=== PATIENT | male | born 1960 | race Caucasian/White ===

== ENCOUNTER 2018-04-17 01:15 | Emergency (ER) | payer MEDICAID ==
[~2018-04-17] VITALS: Ht 175.3 cm; Wt 136.0 kg
[~2018-04-17 01:15] MED LIST: CLIN150C8 PO; CYCL-1 PO; NO HOME MEDS
[2018-04-17 03:09] LABS: BASOPHILS % (AUTO) 0.6 % (0-1); EOSINOPHILS # (AUTO) 0.3 X10'3 (0-0.9); HEMATOCRIT 41.2 % (42.0-52.0); LYMPHOCYTES # (AUTO) 1.7 X10'3 (1.1-4.8); LYMPHOCYTES % (AUTO) 31.9 % (21-51); MEAN CORPUSCULAR HEMOGLOBIN 30.2 PG (27.0-31.0); MEAN CORPUSCULAR VOLUME 89.1 FL (78-98); MONOCYTES # (AUTO) 0.5 X10'3 (0-0.9); NEUTROPHILS # (AUTO) 2.7 X10'3 (1.8-7.7); NEUTROPHILS % (AUTO) 52.5 % (42-75); PLATELET COUNT 233 X10'3 (140-440); RED BLOOD COUNT 4.62 X10'6 (4.70-6.10); RED CELL DISTRIBUTION WIDTH 13.2 % (11.5-14.5); WHITE BLOOD COUNT 5.2 X10'3 (4.5-11.0)
[2018-04-17 03:22] LABS: ALANINE AMINOTRANSFERASE 30 U/L (12-78); ALBUMIN 3.5 G/DL (3.4-5.0); ALBUMIN/GLOBULIN RATIO 1.1 (1.1-1.5); ALKALINE PHOSPHATASE 65 IU/L (46-116); ANION GAP 10 (8-16); ASPARTATE AMINO TRANSFERASE 29 U/L (10-37); BILIRUBIN,TOTAL 0.3 MG/DL (0.1-1.0); BLOOD UREA NITROGEN 23 MG/DL (7-18); BUN/CREATININE RATIO 19.8 (5.4-32.0); CHLORIDE 104 MMOL/L (99-107); CREATININE 1.16 MG/DL (0.60-1.10); GLUCOSE 138 MG/DL (70-104); POTASSIUM 4.1 MMOL/L (3.5-5.1); SODIUM 139 MMOL/L (135-145); TOTAL CARBON DIOXIDE 25.3 MMOL/L (24-32); TOTAL PROTEIN 6.8 G/DL (6.4-8.2); eGFR 65 ML/MIN
[2018-04-17 04:38] VITALS: BP 152/84
== END 2018-04-17 08:33 | disposition left against medical advice (07) ==
LOC: ER 01:15
DX: R06.00 Dyspnea, unspecified (principal); Z53.21 Procedure and treatment not carried out due to patient leaving prior to being seen by health care provider
CPT/HCPCS: 36415; 71046; 80053; 83605; 85025; 87040; 93005

== ENCOUNTER 2018-05-20 00:36 | Emergency (ER) | payer MEDICAID ==
[~2018-05-20] VITALS: Ht 175.3 cm; Wt 127.2 kg
[2018-05-20 01:06] LABS: EOSINOPHILS # (AUTO) 0.2 X10'3 (0-0.9); EOSINOPHILS % (AUTO) 4.9 % (0-6); HEMATOCRIT 36.2 % (42.0-52.0); HEMOGLOBIN 12.4 g/dl (14.0-17.9); LYMPHOCYTES # (AUTO) 1.9 X10'3 (1.1-4.8); LYMPHOCYTES % (AUTO) 39.9 % (21-51); MEAN CORPUSCULAR HEMOGLOBIN 30.1 PG (27.0-31.0); MEAN CORPUSCULAR HGB CONC 34.2 g/dL (33.0-36.5); MEAN CORPUSCULAR VOLUME 88.1 FL (78-98); MEAN PLATELET VOLUME 8.1 FL (7.4-10.4); MONOCYTES # (AUTO) 0.5 X10'3 (0-0.9); MONOCYTES % (AUTO) 11.4 % (2-12); NEUTROPHILS % (AUTO) 42.8 % (42-75); PLATELET COUNT 195 X10'3 (140-440); RED BLOOD COUNT 4.11 X10'6 (4.70-6.10); RED CELL DISTRIBUTION WIDTH 13.3 % (11.5-14.5); WHITE BLOOD COUNT 4.7 X10'3 (4.5-11.0)
[2018-05-20 01:15] LABS: ALANINE AMINOTRANSFERASE 35 U/L (12-78); ALBUMIN 3.4 G/DL (3.4-5.0); ALBUMIN/GLOBULIN RATIO 1.1 (1.1-1.5); ALKALINE PHOSPHATASE 61 IU/L (46-116); ANION GAP 8 (8-16); ASPARTATE AMINO TRANSFERASE 41 U/L (10-37); BILIRUBIN,TOTAL 0.2 MG/DL (0.1-1.0); BLOOD UREA NITROGEN 23 MG/DL (7-18); BUN/CREATININE RATIO 16.7 (5.4-32.0); CALCIUM 9.7 MG/DL (8.5-10.1); CHLORIDE 107 MMOL/L (99-107); CREATININE 1.38 MG/DL (0.60-1.10); GLUCOSE 147 MG/DL (70-104); POTASSIUM 3.8 MMOL/L (3.5-5.1); SODIUM 142 MMOL/L (135-145); TOTAL CARBON DIOXIDE 26.7 MMOL/L (24-32); TOTAL PROTEIN 6.4 G/DL (6.4-8.2); eGFR 53 ML/MIN
[2018-05-20] MEDS ORDERED: carVEDilol 12.5mg tablet PO SCH (02:55)
[2018-05-20] MEDS ORDERED: albuterol 2.5 MG/3 ML nebule NEB ONE (02:55)
[2018-05-20] MEDS ORDERED: CARV3.12 PO (03:04)
[2018-05-20] MEDS ORDERED: ALBU6.7H INH (03:19)
[2018-05-20] MEDS ORDERED: dexamethasone 4mg tablet PO ONE (03:20)
[2018-05-20 03:40] VITALS: BP 161/91
== END 2018-05-20 03:44 | disposition home or self-care (01) ==
LOC: ER 00:36
DX: I11.0 Hypertensive heart disease with heart failure (principal); I50.9 Heart failure, unspecified; J45.909 Unspecified asthma, uncomplicated; M19.90 Unspecified osteoarthritis, unspecified site; Z98.890 Other specified postprocedural states; Z79.899 Other long term (current) drug therapy
CPT/HCPCS: 36415; 71046; 80053; 83735; 83880; 85025; 93005; 94640; 94760; 99284; J8540

== ENCOUNTER 2018-05-21 16:02 | Inpatient (IN) | payer MEDICAID ==
[~2018-05-21] VITALS: Ht 175.3 cm; Wt 129.6 kg
[~2018-05-21 16:02] MED LIST changes: +ALBU6.7H INH; +CARV3.12 PO
[2018-05-21 16:35] LABS: BASOPHILS % (AUTO) 0.5 % (0-1); EOSINOPHILS # (AUTO) 0.1 X10'3 (0-0.9); EOSINOPHILS % (AUTO) 0.9 % (0-6); HEMATOCRIT 37.8 % (42.0-52.0); LYMPHOCYTES # (AUTO) 1.9 X10'3 (1.1-4.8); LYMPHOCYTES % (AUTO) 23.9 % (21-51); MEAN CORPUSCULAR HEMOGLOBIN 30.4 PG (27.0-31.0); MEAN CORPUSCULAR HGB CONC 34.3 g/dL (33.0-36.5); MEAN CORPUSCULAR VOLUME 88.6 FL (78-98); MEAN PLATELET VOLUME 8.2 FL (7.4-10.4); MONOCYTES # (AUTO) 0.7 X10'3 (0-0.9); MONOCYTES % (AUTO) 9.2 % (2-12); NEUTROPHILS # (AUTO) 5.3 X10'3 (1.8-7.7); NEUTROPHILS % (AUTO) 65.5 % (42-75); PLATELET COUNT 218 X10'3 (140-440); RED BLOOD COUNT 4.26 X10'6 (4.70-6.10); RED CELL DISTRIBUTION WIDTH 13.4 % (11.5-14.5)
[2018-05-21] MEDS ORDERED: furosemide 20MG tablet PO ONE (16:35)
[2018-05-21 16:47] LABS: ALANINE AMINOTRANSFERASE 48 U/L (12-78); ALBUMIN 3.6 G/DL (3.4-5.0); ALBUMIN/GLOBULIN RATIO 1.1 (1.1-1.5); ALKALINE PHOSPHATASE 60 IU/L (46-116); ANION GAP 8 (8-16); ASPARTATE AMINO TRANSFERASE 42 U/L (10-37); BILIRUBIN,TOTAL 0.2 MG/DL (0.1-1.0); BLOOD UREA NITROGEN 19 MG/DL (7-18); BUN/CREATININE RATIO 20.2 (5.4-32.0); CALCIUM 9.8 MG/DL (8.5-10.1); CHLORIDE 106 MMOL/L (99-107); CREATININE 0.94 MG/DL (0.60-1.10); GLUCOSE 147 MG/DL (70-104); SODIUM 141 MMOL/L (135-145); TOTAL PROTEIN 6.8 G/DL (6.4-8.2); eGFR 82 ML/MIN
[2018-05-21 16:56] LABS: PARTIAL THROMBOPLASTIN TIME 25 SECONDS (22-32); PROTHROMBIN TIME 10.3 SECONDS (9.0-12.0)
[2018-05-21] MEDS ORDERED: aspirin 325mg tablet PO ONE (17:15)
[2018-05-21] MEDS ORDERED: magnesium hydroxide 30ml (MOM) UD suspension PO PRN (17:35)
[2018-05-21] MEDS ORDERED: ondansetron/PF 4mg/2ml inj IV PRN (17:35)
[2018-05-21] MEDS ORDERED: morphine 4 MG/ML inj SYRINge IV PRN ×2 (17:35)
[2018-05-21] MEDS ORDERED: mag hydrox/Alum hydrox/simeth 30ml oral suspension PO PRN (17:35)
[2018-05-21] MEDS ORDERED: acetaminophen 325mg tablet PO PRN (17:35)
[2018-05-21] MEDS ORDERED: enoxaparin 100mg/ml syringe SUBCUT ONE (17:35)
[2018-05-21] MEDS ORDERED: albuterol 2.5 MG/3 ML nebule NEB PRN (17:35)
--- NOTE | 2018-05-21 18:06 | NUR ---
FNP AT BEDSIDE PER ORDERS
[2018-05-21 19:02] LABS: HEMOGLOBIN A1C 6.6 % (4.5-6.2)
--- NOTE | 2018-05-21 19:41 | NUR ---
sandwich given to patient
[2018-05-21] MEDS ORDERED: non-formulary drug (Albuterol Sulfate (Proventil Hfa) 2 PUFFS) INH SCH (20:00)
[2018-05-21] MEDS: carVEDilol 3.125mg tablet PO SCH (20:06)
[2018-05-21] MEDS: furosemide 10 MG/1 ML 10ml inj IV SCH (20:06)
--- NOTE | 2018-05-21 22:18 | NUR ---
Patient gave verbal permission to allow staff to talk to, and release information to his sister "Ron" over the phone.
[2018-05-22 06:45] VITALS: BP 149/91
[2018-05-22 07:32] LABS: BASOPHILS # (AUTO) 0.1 X10'3 (0-0.2); BASOPHILS % (AUTO) 1.2 % (0-1); EOSINOPHILS # (AUTO) 0.1 X10'3 (0-0.9); EOSINOPHILS % (AUTO) 1.6 % (0-6); HEMATOCRIT 38.1 % (42.0-52.0); HEMOGLOBIN 13.1 g/dl (14.0-17.9); LYMPHOCYTES # (AUTO) 2.4 X10'3 (1.1-4.8); LYMPHOCYTES % (AUTO) 27.1 % (21-51); MEAN CORPUSCULAR HEMOGLOBIN 30.2 PG (27.0-31.0); MEAN CORPUSCULAR HGB CONC 34.4 g/dL (33.0-36.5); MEAN PLATELET VOLUME 8.2 FL (7.4-10.4); MONOCYTES # (AUTO) 0.8 X10'3 (0-0.9); MONOCYTES % (AUTO) 9.7 % (2-12); NEUTROPHILS # (AUTO) 5.2 X10'3 (1.8-7.7); NEUTROPHILS % (AUTO) 60.4 % (42-75); PLATELET COUNT 207 X10'3 (140-440); RED BLOOD COUNT 4.33 X10'6 (4.70-6.10); RED CELL DISTRIBUTION WIDTH 13.4 % (11.5-14.5); WHITE BLOOD COUNT 8.7 X10'3 (4.5-11.0)
[2018-05-22 07:50] LABS: ALBUMIN 3.4 G/DL (3.4-5.0); ANION GAP 6 (8-16); BLOOD UREA NITROGEN 18 MG/DL (7-18); BUN/CREATININE RATIO 16.2 (5.4-32.0); CALCIUM 9.5 MG/DL (8.5-10.1); CHLORIDE 106 MMOL/L (99-107); CHOL/HDL RATIO 3.3 (0.00-4.99); CHOLESTEROL 141 MG/DL (0-200); CREATININE 1.11 MG/DL (0.60-1.10); GLUCOSE 116 MG/DL (70-104); HDL CHOLESTEROL 43 MG/DL (35-60); LDL CHOLESTEROL 84 MG/DL (50-100); POTASSIUM 3.9 MMOL/L (3.5-5.1); SODIUM 142 MMOL/L (135-145); TOTAL CARBON DIOXIDE 29.6 MMOL/L (24-32); TRIGLYCERIDES 137 MG/DL (20-135); eGFR 68 ML/MIN
[2018-05-22] MEDS: furosemide 10 MG/1 ML 10ml inj IV SCH (09:56)
[2018-05-22] MEDS: carVEDilol 3.125mg tablet PO SCH ×2 (09:57→20:00)
[2018-05-22] MEDS: spironolactone 25 MG tablet PO SCH (09:57)
[2018-05-22] MEDS: lisinopril 5mg tablet PO SCH (09:57)
[2018-05-22 11:00] VITALS: BP 123/78
[2018-05-22] MEDS: enoxaparin 40mg/0.4ml syringe SUBCUT SCH (14:57)
[2018-05-22 19:54] VITALS: BP 112/89
[2018-05-22] MEDS: furosemide 40mg/4ml inj IV SCH (20:00)
[2018-05-22 23:00] VITALS: BP 116/79
[2018-05-23 03:00] VITALS: BP 122/72
[2018-05-23 06:00] VITALS: BP 120/87
--- NOTE | 2018-05-23 06:00 | NUR ---
Assumed pt care
[2018-05-23 06:26] LABS: BASOPHILS % (AUTO) 0.8 % (0-1); EOSINOPHILS # (AUTO) 0.2 X10'3 (0-0.9); EOSINOPHILS % (AUTO) 2.8 % (0-6); HEMATOCRIT 44.1 % (42.0-52.0); HEMOGLOBIN 15.1 g/dl (14.0-17.9); LYMPHOCYTES # (AUTO) 1.9 X10'3 (1.1-4.8); MEAN CORPUSCULAR HEMOGLOBIN 30.1 PG (27.0-31.0); MEAN CORPUSCULAR HGB CONC 34.3 g/dL (33.0-36.5); MEAN CORPUSCULAR VOLUME 87.7 FL (78-98); MEAN PLATELET VOLUME 8.4 FL (7.4-10.4); MONOCYTES # (AUTO) 0.7 X10'3 (0-0.9); MONOCYTES % (AUTO) 11.9 % (2-12); NEUTROPHILS # (AUTO) 2.8 X10'3 (1.8-7.7); NEUTROPHILS % (AUTO) 50.5 % (42-75); PLATELET COUNT 240 X10'3 (140-440); RED BLOOD COUNT 5.02 X10'6 (4.70-6.10); RED CELL DISTRIBUTION WIDTH 13.6 % (11.5-14.5); WHITE BLOOD COUNT 5.5 X10'3 (4.5-11.0)
[2018-05-23 06:57] LABS: ALBUMIN 3.5 G/DL (3.4-5.0); ANION GAP 8 (8-16); BLOOD UREA NITROGEN 23 MG/DL (7-18); BUN/CREATININE RATIO 17.8 (5.4-32.0); CALCIUM 9.5 MG/DL (8.5-10.1); CHLORIDE 103 MMOL/L (99-107); CREATININE 1.29 MG/DL (0.60-1.10); GLUCOSE 128 MG/DL (70-104); POTASSIUM 3.7 MMOL/L (3.5-5.1); SODIUM 142 MMOL/L (135-145); TOTAL CARBON DIOXIDE 31.5 MMOL/L (24-32); eGFR 57 ML/MIN
[2018-05-23] MEDS: furosemide 40mg/4ml inj IV SCH (07:39)
[2018-05-23] MEDS: lisinopril 5mg tablet PO SCH (07:39)
[2018-05-23] MEDS: spironolactone 25 MG tablet PO SCH (07:39)
[2018-05-23] MEDS: enoxaparin 40mg/0.4ml syringe SUBCUT SCH (07:40)
[2018-05-23] MEDS: carVEDilol 3.125mg tablet PO SCH (07:40)
--- NOTE | 2018-05-23 09:00 | NUR ---
D/C planning per Dr MONTELONGO
[2018-05-23] MEDS ORDERED: LISI-642 PO (10:28)
[2018-05-23] MEDS ORDERED: SPIR25TA PO (10:28)
[2018-05-23] MEDS ORDERED: FURO-150 PO (10:28)
--- NOTE | 2018-05-23 10:54 | NUR ---
costing manager Vielka give pt all recourses paper for displaced member printed on hand. Dr Cole prescription ready [facility] called to fill. Appointment for Dr Ramirez for June 02 09:20 [phone]
--- NOTE | 2018-05-23 13:08 | NUR ---
[id number] Dr Cole MESSAGE: Pt [address] no SOB med at the bed site Camille PUENTE
--- NOTE | 2018-05-23 14:53 | NUR ---
D/C IV all instruction given walk patient outside [facility]
== END 2018-05-23 15:10 | disposition home or self-care (01) | DRG 194 ==
LOC: ER 16:02 → ED HOLD 17:34 → PCU 3S 05-22 08:20
PROVIDERS: ADMIT Internal Medicine; ATTEND Internal Medicine
DX: I11.0 Hypertensive heart disease with heart failure (principal); E66.01 Morbid (severe) obesity due to excess calories; I42.7 Cardiomyopathy due to drug and external agent; I50.23 Acute on chronic systolic (congestive) heart failure; F15.10 Other stimulant abuse, uncomplicated; I44.7 Left bundle-branch block, unspecified; J45.909 Unspecified asthma, uncomplicated; I08.1 Rheumatic disorders of both mitral and tricuspid valves; M19.90 Unspecified osteoarthritis, unspecified site; Z71.51 Drug abuse counseling and surveillance of drug abuser; Z79.899 Other long term (current) drug therapy; Z68.41 Body mass index [BMI] 40.0-44.9, adult
CPT/HCPCS: 36415; 71045; 80048; 80053; 80061; 83036; 83880; 84145; 84484; 85025; 85610; 85730; 87070; 93005; 93306; 94760; 99285; G0378; J1650; J1940

== ENCOUNTER 2018-06-16 15:28 | Emergency (ER) | payer MEDICAID ==
[~2018-06-16] VITALS: Ht 175.3 cm; Wt 150.0 kg
[~2018-06-16 15:28] MED LIST changes: -CLIN150C8 PO; -CYCL-1 PO; +FURO-150 PO; +LISI-642 PO; -NO HOME MEDS; +SPIR25TA PO
[2018-06-16 16:22] LABS: BASOPHILS % (AUTO) 0.9 % (0-1); EOSINOPHILS # (AUTO) 0.2 X10'3 (0-0.9); EOSINOPHILS % (AUTO) 4.6 % (0-6); HEMATOCRIT 38.3 % (42.0-52.0); HEMOGLOBIN 13.5 g/dl (14.0-17.9); LYMPHOCYTES % (AUTO) 39.9 % (21-51); MEAN CORPUSCULAR HEMOGLOBIN 30.5 PG (27.0-31.0); MEAN CORPUSCULAR HGB CONC 35.2 g/dL (33.0-36.5); MEAN CORPUSCULAR VOLUME 86.5 FL (78-98); MEAN PLATELET VOLUME 8.3 FL (7.4-10.4); MONOCYTES # (AUTO) 0.6 X10'3 (0-0.9); MONOCYTES % (AUTO) 11.2 % (2-12); NEUTROPHILS # (AUTO) 2.1 X10'3 (1.8-7.7); NEUTROPHILS % (AUTO) 43.4 % (42-75); PLATELET COUNT 213 X10'3 (140-440); RED BLOOD COUNT 4.43 X10'6 (4.70-6.10); RED CELL DISTRIBUTION WIDTH 13.5 % (11.5-14.5); WHITE BLOOD COUNT 4.9 X10'3 (4.5-11.0)
[2018-06-16 16:33] LABS: PARTIAL THROMBOPLASTIN TIME 27 SECONDS (22-32); PROTHROMBIN TIME 9.9 SECONDS (9.0-12.0)
[2018-06-16 16:45] LABS: ALANINE AMINOTRANSFERASE 30 U/L (12-78); ALBUMIN 3.5 G/DL (3.4-5.0); ALKALINE PHOSPHATASE 62 IU/L (46-116); ANION GAP 7 (8-16); ASPARTATE AMINO TRANSFERASE 20 U/L (10-37); BILIRUBIN,TOTAL 0.2 MG/DL (0.1-1.0); BLOOD UREA NITROGEN 23 MG/DL (7-18); BUN/CREATININE RATIO 19.5 (5.4-32.0); CALCIUM 10.2 MG/DL (8.5-10.1); CHLORIDE 104 MMOL/L (99-107); CREATININE 1.18 MG/DL (0.60-1.10); GLUCOSE 117 MG/DL (70-104); POTASSIUM 4.3 MMOL/L (3.5-5.1); SODIUM 138 MMOL/L (135-145); TOTAL CARBON DIOXIDE 26.6 MMOL/L (24-32); TOTAL PROTEIN 6.9 G/DL (6.4-8.2); eGFR 63 ML/MIN
[2018-06-16 17:37] VITALS: BP 144/74
== END 2018-06-16 18:10 | disposition home or self-care (01) ==
LOC: ER 15:29
DX: I11.0 Hypertensive heart disease with heart failure (principal); I50.9 Heart failure, unspecified; R79.89 Other specified abnormal findings of blood chemistry; J45.909 Unspecified asthma, uncomplicated; M19.90 Unspecified osteoarthritis, unspecified site; F17.200 Nicotine dependence, unspecified, uncomplicated; Z98.890 Other specified postprocedural states; Z79.899 Other long term (current) drug therapy
CPT/HCPCS: 36415; 71045; 80053; 83880; 84484; 85025; 85610; 85730; 93005; 99284

== ENCOUNTER 2018-07-19 09:47 | Emergency (ER) | payer MEDICAID ==
[~2018-07-19] VITALS: Ht 175.3 cm; Wt 136.4 kg
[~2018-07-19 09:47] MED LIST changes: +ALBU18HF2 INH; -FURO-150 PO
[2018-07-19 10:16] VITALS: BP 127/83
[2018-07-19] MEDS ORDERED: AMOX-580 PO (11:19)
[2018-07-19] MEDS ORDERED: bupivacaine 0.25%/epinephrine 1:200,000 inj (contains preserv. MDV) IJ ONE (11:20)
[2018-07-19] MEDS ORDERED: BUPIVAcaine 0.5% W/EPI /PF 30ml vial IJ ONE (11:30)
== END 2018-07-19 11:39 | disposition home or self-care (01) ==
LOC: ER 09:48
DX: K08.89 Other specified disorders of teeth and supporting structures (principal); K03.81 Cracked tooth; I11.0 Hypertensive heart disease with heart failure; I50.9 Heart failure, unspecified; M19.90 Unspecified osteoarthritis, unspecified site; J45.909 Unspecified asthma, uncomplicated; Z98.890 Other specified postprocedural states; Z79.899 Other long term (current) drug therapy
CPT/HCPCS: 64400; 99284